=== PATIENT | female | born 1995 | race Caucasian/White ===

== ENCOUNTER 2016-11-17 22:03 | Emergency (ER) | payer MEDICAID ==
[~2016-11-17] VITALS: Ht 167.6 cm; Wt 104.8 kg
[~2016-11-17 22:03] MED LIST: HYDR-3989 PO; NO ROUTINE MEDS; PRED20TA PO
[2016-11-17 22:20] VITALS: Ht 167.6 cm; Wt 104.8 kg
--- NOTE | 2016-11-17 22:43 | ERPDOC ---
Departure Disposition Decision Date: Nov 18, 2016 Disposition Decision Time: 00:10 (KEENAN SMITH APRN) Disposition: 01 DISCHARGED HOME, SELF-CARE Impression Impression (KEENAN SMITH APRN) Impression: Primary Impression: Abdominal pain during in second trimester Severity: Moderate (KEENAN SMITH APRN) Condition: Stable Seen By: Mid-level only (KEENAN SMITH APRN) Referrals: ORLANDO MYERS MD Patient Instructions: Abdominal Pain in (ED) Problems/Meds/Labs Reviewed?: Yes Medications reviewed and manag: Yes (KEENAN SMITH APRN) Additional Instructions: Your labs were normal today. You may take OTC tylenol for pain. Call Dr. Myers's office tomorrow for appointment for re-evaluation. Wear your "belly band" to help support your abdomen. Follow treatment plan. Departure Forms: Return to Work/School Permit Return to Work/School Date: Nov 20, 2016 Follow up care ordered?: Yes Mental Status: Alert, Oriented (KEENAN SMITH APRN) HPI - Abdominal Pain General Stated Complaint: ABD PAIN- 19 WKS Time Seen by Provider: 22:42 Source: patient (KEENAN SMITH APRN) Time Seen by Provider: 22:42 (KACIE MORSE MD) HPI - Abdominal Pain Initial Comments 21-year-old female presents to ER with complaint of medial abdominal pain distal of umbilicus to pubis. States pain started last night and has been constant. Patient is 18 weeks , 1 para 0. EDC 8-20-17. Patient sees Dr. Myers. last visit was on the of this month. Had ultrasound the month previously with known IUP. Patient reports that pain started during the night. Pain is worse with defecation and urination. Patient denies any vaginal bleeding, back pain or dysuria. Pain is improved when lying on her side. Last BM at 1200 today. Patient has not taken anything for pain. Patient says she has mild nausea which is what she has had with (no increased nausea or vomiting). Patient does admit she has been working more lately and has been on her feet 12 hours daily at work. Pain Scale: Now: 5/10 Quality: burning 1 - Reports pain Associated Symptoms: DENIES: back pain, chest pain, diaphoresis, fatigue, fever /chills, headache, heartburn, rash, shortness of breath, swelling/mass in abdomen, syncope, weakness (KEENAN SMITH MATERIALS BRANCH CHIEF) Allergies: Coded Allergies: No Known Drug Allergies (Unverified Allergy, Unknown, 05/09/08) Past History Past Medical History Metabolic: DENIES: diabetes, hypertension Cardiac: DENIES: angina Respiratory: DENIES: asthma GI: GERD, gallbladder disease Female: DENIES: renal insufficiency Neurological: DENIES: seizures Musculoskeletal: DENIES: rheumatoid arthritis Psychological: DENIES: depression (KEENAN SMITH MATERIALS BRANCH CHIEF) Surgical History General: EGD, gallbladder, other (left breast biopsy with cyst removal) Joint: other (ankle) (KEENAN SMITH MATERIALS BRANCH CHIEF) Family History Family PMH: FOUND: other (noncontributory) (KEENAN SMITH MATERIALS BRANCH CHIEF) Vaccines Hx Influenza Vaccination: Yes ([id number]) Hx Pneumococcal Vaccination: No (KEENAN SMITH APRN) Social History Substance Use Type: does not use Alcohol Intake: occasionally (KEENAN SMITH MATERIALS BRANCH CHIEF) Review of Systems Constitutional Constitutional: DENIES: chills, dizziness, fever, weakness (MARIA ESTHER SMITHS A MATERIALS BRANCH CHIEF) Eyes General: DENIES: erythema, exudate Lids/Accessories: DENIES: erythema, swelling (KEENAN SMITH MATERIALS BRANCH CHIEF) ENMT Ears: DENIES: pain Hearing: DENIES: hearing loss Sinuses: DENIES: congestion, rhinorrhea Mouth/Throat: DENIES: sore throat (MARIA ESTHER SMITHS A MATERIALS BRANCH CHIEF) Cardiovascular Cardiac: DENIES: chest pain, murmur (MARIA ESTHER SMITHS A MATERIALS BRANCH CHIEF) Pulmonary Respiratory: DENIES: cough, dyspnea (MARIA ESTHER SMITHS A MATERIALS BRANCH CHIEF) GI Upper Abdomen: nausea, DENIES: pain, vomiting Lower Abdomen: constipation, pain, see HPI, DENIES: blood in stool, diarrhea ( MARIA ESTHER SMITHS A MATERIALS BRANCH CHIEF) General: DENIES: burning, dysuria, frequency, pain, urgency (MARIA ESTHER SMITHS A MATERIALS BRANCH CHIEF) Musculoskeletal General: DENIES: joint pain, pain, tenderness (MARIA ESTHER SMITHS A MATERIALS BRANCH CHIEF) Integumentary Skin: DENIES: color change, itching, rash (MARIA ESTHER SMITHS A MATERIALS BRANCH CHIEF) Neurological General: DENIES: ataxia, change in strength, numbness, paralysis/paresis, weakness (MARIA ESTHER SMITHS A MATERIALS BRANCH CHIEF) Psychiatric Psychiatric: DENIES: anxiety, depression, nervousness (MARIA ESTHER SMITHS A MATERIALS BRANCH CHIEF) Physical Exam General General Nourishment: well nourished, well developed, adult General Body Habitus: well groomed (MARIA ESTHER SMITHS Tawny MATERIALS BRANCH CHIEF) Vitals and Pain First Documented Vital Signs Date Time Temp Pulse Resp B/P Pulse Ox O2 Delivery O2 Flow Rate FiO2 11/17/16 22:20 98.4 101 18 139/84 98 Room Air (KACIE MORSE MD) Vitals and Pain Weight: Kilograms: Height (feet): 5 Height (inches): 6.00 Triage Pain Scale: (MARIA ESTHER SMITHS A MATERIALS BRANCH CHIEF) Eyes (brief) Eyes Brief: found: EOMI (MARIA ESTHER SMITHS A MATERIALS BRANCH CHIEF) ENMT (brief) ENMT Brief: NOT FOUND: nasal exudate, nasal swelling (MARIA ESTHER SMITHS A MATERIALS BRANCH CHIEF) Neck (brief) Neck: FOUND: trachea midline (MARIA ESTHER SMITHS A MATERIALS BRANCH CHIEF) Respiratory (brief) Respiratory: FOUND: clear all shakih, equal bilaterally, symmetrical (MARIA ESTHER SMITHS A MATERIALS BRANCH CHIEF) Cardiovascular (brief) Cardiac: FOUND: regular rate, regular rhythm (MARIA ESTHER SMITHS A MATERIALS BRANCH CHIEF) Abdomen Inspection: FOUND: other (fundal height 2 finger breaths below umbilicus) Palpation: FOUND: soft, NOT FOUND: hepatomegaly, involuntary guarding, rebound , splenomegaly, tender, voluntary guarding Auscultation: FOUND: normoactive (x4) (MARIA ESTHER SMITHS A MATERIALS BRANCH CHIEF) Musculoskeletal (brief) Musculoskeletal Brief: NOT FOUND: deformity, loss of motion (MARIA ESTHER SMITHS A MATERIALS BRANCH CHIEF) Integumentary (brief) Integumentary Brief: FOUND: dry, pink, warm (MARIA ESTHER SMITHS A MATERIALS BRANCH CHIEF) Neurologic (brief) Neurological Brief: FOUND: motor-no gross deficits, sensory-no gross deficits ( LUISKEENAN A MATERIALS BRANCH CHIEF) Psychiatric (brief) Psychiatric Brief: FOUND: alert, normal affect, oriented (MARIA ESTHER SMITHS A MATERIALS BRANCH CHIEF ) Differential Diagnoses Considering: Threatened AB (spont), Appendicitis, Constipation/Obstipation, UTI , Other (Hernia) (MARIA ESTHER SMITHS A MATERIALS BRANCH CHIEF) Progress Results/Orders Orders Procedure Category Date Status Time Nothing By Mouth (Ed EDM 3/20/17 Transmitted Only) 22:49 Cbc W/Auto LAB 11/17/16 Complete Diff-Reflex Manual 22:49 Cmp - Comprehensive LAB 11/17/16 Complete Metabolic 22:49 Ua, Dip Wreflex LAB 11/17/16 Complete Microsc & Edge Polisher 22:49 (KACIE MORSE MD) Lab Results Laboratory Tests Test 11/17/16 23:03 11/17/16 23:17 Urine Collection Type Cleancatch-midstream Urine Color Yellow Urine Turbidity Sl cloudy Urine pH 6.5 Urine Specific Dighton 1.020 Urine Protein Negative Urine Glucose (UA) Negative Urine Ketones Negative Urine Blood Trace-intact Urine Nitrite Negative Urine Bilirubin Negative Urine Urobilinogen 0.2EU/DL Urine Leukocyte Esterase Negative Urinalysis Comment Microscopic not ind. White Blood Count 10.9T/MM3 Red Blood Count 3.88M/MM3 Hemoglobin 11.2GM/DL Hematocrit 33.9% Mean Corpuscular Volume 87.4UM3 Mean Corpuscular Hemoglobin 28.9UUG Mean Corpuscular Hemoglobin Concent 33.0GM/DL RDW Standard Deviation 42.5FL Platelet Count 291T/MM3 Mean Platelet Volume 10.0UM3 Immature Granulocyte % (Auto) 0.4% Neutrophils (%) (Auto) 67.7% Lymphocytes (%) (Auto) 23.9% Monocytes (%) (Auto) 6.1% Eosinophils (%) (Auto) 1.7% Basophils (%) (Auto) 0.2% Absolute Immature Granulocyte (auto 0.04T/MM3 Absolute Neutrophils (auto) 7.4T/MM3 Absolute Lymphocytes (auto) 2.6T/MM3 Absolute Monocytes (auto) 0.7T/MM3 Absolute Eosinophils (auto) 0.2T/MM3 Absolute Basophils (auto) 0.0T/MM3 Turbidity < 20 Sodium Level 140MEQ/L Potassium Level 3.6MEQ/L Chloride Level 107MEQ/L Carbon Dioxide Level 24MEQ/L Anion Gap 9MEQ/L Blood Urea Nitrogen 8.0MG/DL Creatinine 0.5MG/DL Glomerular Filtration Rate Calc 157 BUN/Creatinine Ratio 16RATIO Glucose Level 77MG/DL Calculated Osmolality 266MOSM/KG Calcium Level 9.4MG/DL Total Bilirubin 0.30MG/DL Icterus Index < 2 Aspartate Amino Transf (AST/SGOT) 13U/L Alanine Aminotransferase (ALT/SGPT) 25U/L Alkaline Phosphatase 61U/L Total Protein 6.8G/DL Albumin 3.7G/DL Globulin 3.1G/DL Albumin/Globulin Ratio 1.2RATIO Chemistry Specimen Hemolysis < 15 (KACIE MORSE MD) Progress Progress Labs are unremarkable. I discussed conversation I had with Dr. Cade and labs with patient. Patient says that she does have "a belly band" but has not been wearing it. Patient now says she has been passing a lot of gas today and thinks she may be constipated. Patient verbalized understanding of treatment plan, close follow up with Dr. Myers and return precautions. (KEENAN SMITH APRN) Consult/PCP Consult/PCP : Type of discussion: Phone Consult/PCP Discussion Details I discussed patient's HPI, PMH, labs, VS, FHT and exam findings with Dr. Cade. Dr. Cade asked if patient may have umbilical hernia which I told her I did not feel any weakening in abdominal wall. Dr. aCde said she does not feel patient is having any symptoms of miscarriage. She suggest patient wear a band. Follow up with Dr. Christianson in office. She does not feel patient needs ultrasound. Dr. Cade feels patient pain should be managed with tylenol. (KEENAN SMITH APRN) KEENAN SMITH APRN Nov 17, 2016 22:43 KACIE MORSE MD Nov 18, 2016 01:41
--- NOTE | 2016-11-17 23:00 | NUR ---
FHT FHT assessed = 144 bpm
[2016-11-17 23:13] LABS: BLOOD, URINE TRACE-INTACT (NEGATIVE); COLOR,URINE YELLOW (YELLOW); LEUKOCYTE ESTERASE ,URINE NEGATIVE (NEGATIVE); NITRITE,URINE NEGATIVE (NEGATIVE); UROBILINOGEN,URINE 0.2 EU/DL (NORMAL)
--- NOTE | 2016-11-17 23:32 | NUR ---
REPORT RECIEVED REPORT FROM CHARLIE SIMMONS. I WILL RESUME CARE
[2016-11-17 23:39] LABS: ALBUMIN 3.7 G/DL (3.5-5.0); ALBUMIN/GLOBULIN RATIO 1.2 RATIO (1.1-2.2); ALKALINE PHOSPHATASE 61 U/L (38-126); ALT (SGPT) 25 U/L (9-52); ANION GAP 9 MEQ/L (5-15); AST (SGOT) 13 U/L (14-36); BUN/CREATININE RATIO 16 RATIO (6-26); CALCIUM 9.4 MG/DL (8.4-10.2); CHLORIDE 107 MEQ/L (98-107); CO2 - CARBON DIOXIDE 24 MEQ/L (22-30); CREATININE 0.5 MG/DL (0.7-1.2); GLOMERULAR FILTRATION RATE 157; GLUCOSE 77 MG/DL (65-110); POTASSIUM 3.6 MEQ/L (3.6-5); SODIUM 140 MEQ/L (134-144); TOTAL PROTEIN 6.8 G/DL (6.3-8.2)
[2016-11-17 23:41] LABS: BASOPHILS % (AUTO) 0.2 % (0-2); EOSINOPHILS # (AUTO) 0.2 T/MM3 (0-0.5); EOSINOPHILS % (AUTO) 1.7 % (0-4); HCT - HEMATOCRIT 33.9 % (36-46); HGB - HEMOGLOBIN 11.2 GM/DL (12-16); IMMATURE GRANULOCYTE # (AUTO) 0.04 T/MM3 (0.00-0.03); IMMATURE GRANULOCYTE % (AUTO) 0.4 % (0.0-0.5); LYMPHOCYTES # (AUTO) 2.6 T/MM3 (1-4.8); LYMPHOCYTES % (AUTO) 23.9 % (23-45); MEAN CORPUSCULAR HGB 28.9 UUG (26-34); MEAN CORPUSCULAR VOLUME 87.4 UM3 (80-100); MONOCYTES # (AUTO) 0.7 T/MM3 (0-0.8); MONOCYTES % (AUTO) 6.1 % (0-9.0); NEUTROPHILS #(AUTO)-ABSOLUTE 7.4 T/MM3 (1.8-7.7); NEUTROPHILS % (AUTO) 67.7 % (33-66); RED BLOOD COUNT 3.88 M/MM3 (4.00-5.20); WBC - WHITE BLOOD COUNT 10.9 T/MM3 (4.5-11.0)
[2016-11-18 00:28] VITALS: BP 135/83; PULSE 98; RESP 18; TEMP 98; O2SAT 98
--- NOTE | 2016-11-18 00:28 | NUR ---
DEPART PT IS GIVEN DISMISSAL INSTRUCTIONS WITH VERBAL UNDERSTANDING. PT LEAVES AMBULATORY WITH FAMILY TO ED REGISTRATION DESK
== END 2016-11-18 00:28 | disposition home or self-care (01) ==
LOC: ED 22:03
DX: O26.892 Other specified pregnancy related conditions, second trimester (principal); R10.30 Lower abdominal pain, unspecified; Z3A.18 18 weeks gestation of pregnancy
CPT/HCPCS: 36415; 80053; 81003; 85025

== ENCOUNTER 2016-12-17 11:26 | Outpatient (CLI) | payer MEDICAID ==
[~2016-12-17 11:26] MED LIST changes: -HYDR-3989 PO; -PRED20TA PO
[2016-12-17] MEDS ORDERED: ACETAMINOPHEN 500 MG TABLET PO PRN (12:15)
--- NOTE | 2016-12-17 12:15 | PNPDOC ---
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 Pain has been present since 2 nights ago. Good FM. No LOF or VB. Her support belt hasn't helped. No dysuria. She does have constipation, but she had a BM last PM. Objective General: Alert and Oriented Resting on the bed. Abdomen: Non-tender Fundus soft. Tender over right round ligament down to right anterior-lateral thigh. No tenderness over the saphenous vein. No calf tenderness or edema. Objective Comments FHT Doppler normal. (1) 22 weeks gestation of (2) with abdominal pain of right lower quadrant, antepartum Assessment & Plan: Exam c/w round ligament pain. Check UA. Try Tylenol & heating pad. Use support belt more consistently. WILFREDO LOPEZ MD Dec 17, 2016 12:13
--- NOTE | 2016-12-17 12:35 | NUR ---
OB Triage EDC 04-19-17 @c/o R low abdominal and upper R thigh pain. Pain started 2-4 days ago but is worse now and she is supposed to go to work at 3 PM today. Tylenol and warm rice bag given. Evaluated by Dr. Roberson. Note for work today given. Dismissed ambulatory.
[2016-12-17] MEDS ORDERED: PREN1TAB77 PO (16:37)
== END 2016-12-17 12:35 | disposition home or self-care (01) ==
LOC: OBOBS 11:26 → MC 11:26 → OBOBS 12:35
PROVIDERS: ATTEND Obstetrics & Gynecology
DX: O26.892 Other specified pregnancy related conditions, second trimester (principal); R10.31 Right lower quadrant pain; M79.651 Pain in right thigh; Z3A.22 22 weeks gestation of pregnancy
CPT/HCPCS: 99211

== ENCOUNTER 2017-04-21 16:00 | Inpatient (IN) ==
[2017-04-21] MEDS ORDERED: SALINE FLUSH 10ml SYRINGE IVF PRN (17:02)
[2017-04-21] MEDS ORDERED: DINOPROSTONE 10 MG VAGINAL INSERT VG ONE (17:02)
[2017-04-21] MEDS ORDERED: TERBUTALINE 1 MG/ML VIAL SQ PRN (17:02)
[2017-04-21] MEDS ORDERED: MAG-AL + SIM ORAL LIQUID 30ml PO PRN (17:04)
[2017-04-21] MEDS ORDERED: CALCIUM CARBONATE Chewable 500mg TABLET PO PRN (17:04)
[2017-04-21] MEDS ORDERED: LIDOCAINE 1% (10mg/ml) 2mL INJ PF SDV ID PRN (17:04)
[2017-04-21] MEDS ORDERED: METHYLERGONOVINE 0.2 MG/ML INJECTION IM PRN (17:04)
[2017-04-21] MEDS ORDERED: ACETAMINOPHEN 500 MG TABLET PO PRN (17:04)
[2017-04-21] MEDS ORDERED: CARBOPROST 250 MCG/ML INJECTION IM PRN (17:04)
[2017-04-21 21:41] VITALS: BMI 41.5
[2017-04-22] MEDS ORDERED: ACETAMINOPHEN 500 MG TABLET PO PRN ×2 (03:26→20:07)
[2017-04-22] MEDS ORDERED: CARBOPROST 250 MCG/ML INJECTION IM PRN (03:26)
[2017-04-22] MEDS ORDERED: METHYLERGONOVINE 0.2 MG/ML INJECTION IM PRN (03:26)
[2017-04-22] MEDS ORDERED: MAG-AL + SIM ORAL LIQUID 30ml PO PRN (03:26)
[2017-04-22] MEDS ORDERED: CALCIUM CARBONATE Chewable 500mg TABLET PO PRN ×2 (03:26→20:07)
[2017-04-22] MEDS: D5LR 1,000 ML IV PRN ×2 (06:00→14:52)
[2017-04-22] MEDS ORDERED: OXYTOCIN DRIP 30 UNIT/500 ML ML IV PRN (06:00)
[2017-04-22] MEDS ORDERED: ROPIVACAINE 1% 10MG/ML INJ 200 MG, SUFentanil 50 MCG in NS 100 ML EPI PRN (08:40)
[2017-04-22] MEDS ORDERED: ONDANSETRON 4 MG/2 ML INJECTION IVP PRN (08:40)
[2017-04-22] MEDS ORDERED: NALOXONE 0.4 MG/ML INJECTION IVP PRN (08:40)
[2017-04-22] MEDS ORDERED: DiphenhydrAMINE 50 MG/ML INJECTION IVP PRN (08:40)
--- NOTE | 2017-04-22 08:40 | Anesthesia Preoperative Report ---
Anesthesia Epidural/Spinal Rec - Date and Time Date: 04/22/17 Procedure: Labor Epidural Plan: Epidural - Vital Signs Vital Signs: Temperature 98.0 F 04/22/17 02:28 Pulse Rate 82 04/22/17 02:28 Respiratory Rate 20 04/22/17 02:28 Blood Pressure 121/66 04/22/17 02:28 Pulse Oximetry 97 04/21/17 17:00 Oxygen Delivery Method Room Air /Para: P:0 - Medictaions & Allergies Inpatient Medications: Current Medications Acetaminophen (Tylenol) 500 - 1,000 mg PO Q4H PRN PRN Reason: Pain Last Admin: 04/21/17 21:13 Dose: 1,000 mg Al Hydroxide/Mg Hydroxide (Maalox Plus) 30 ml PO Q3H PRN PRN Reason: Indigestion Calcium Carbonate (Tums) 500 - 1,000 mg PO Q2H PRN PRN Reason: Indigestion Last Admin: 04/21/17 19:38 Dose: 1,000 mg Carboprost Tromethamine (Hemabate) 250 mcg IM O PRN PRN Reason: .Downtime Diphenhydramine HCl (Benadryl) 50 mg PO HS PRN PRN Reason: Sleep Last Admin: 04/21/17 21:14 Dose: 50 mg Dextrose/Lactated Ringer's (Dextrose 5%-Lactated Ringers) 1,000 mls @ 125 mls/ hr IV .Q8H PRN PRN Reason: Labor Last Admin: 04/22/17 06:00 Dose: 125 mls/hr Oxytocin (Pitocin Drip) 30 unit in 500 mls @ 2 mls/hr IV .Q24H PRN; Protocol PRN Reason: Induction/Augmentation Last Admin: 04/22/17 06:00 Dose: 2 mls/hr Lactated Ringer's (Lactated Ringers) 1,000 mls @ 0 mls/hr IV .Q0M ALECIA PRN Reason: Per Protocol Lidocaine HCl (Xylocaine-Mpf 1% Vial) 0.2 mg ID O PRN PRN Reason: IV Start Methylergonovine Maleate (Methergine) 0.2 mg IM O PRN Misoprostol (Cytotec) 800 mcg HI ONCE PRN Sodium Chloride (Iv Flush) 10 - 80 ml IVF PRN PRN PRN Reason: Flushing Terbutaline Sulfate (Brethine) 0.25 mg SQ PRN PRN Allergies/Adverse Reactions: Allergies Allergy/AdvReac Type Severity Reaction Status Date / Time No Known Drug Allergies Allergy Unknown Verified 03/07/17 04:58 - Home Medications Home Medications: Home Medications Medication Instructions Recorded Confirmed Type Vit No.130/Iron/Folic 1 tab PO DAILY #0 tab 12/17/16 04/21/17 History [ Tablet] ferrous sulfate ER 325 mg (65 mg 325 mg PO .QD cap 02/02/17 04/21/17 History iron) capsule,extended release - Medical History Respiratory: Reports: Other (former smoker) Cardiovascular: DENIES: Abnormal EKG, Angina, Arrhythmia, Congestive Heart Failure, Coronary Artery Disease, Heart Murmur, Hypertension, Hypotension, High Cholesterol, Myocardial Infarction, Rheumatic Fever, Valvular Heart Disease, Other Gastrointestional: Reports: Gastroesophageal Reflux Disease (gastric polyps), Morbid Obesity Neuro/Musculoskeletal: Reports: Back Problems (bilat sciatica. hx of fx tailbone ) Renal/Endocrine: DENIES: Diabetes Mellitus Type 1, Diabetes Mellitus Type 2, Renal Failure, Dialysis, Thyroid Disease, Weight Loss, Weight Gain, Other Other History: Reports: Now - Surgical History GI Surgery/Treatments: Reports: Cholecystectomy, EGD Anesthesia Reactions: None Hx Family Anesthesia Reaction: No History of Motion Sickness: No - Social History Smoking Status: Former smoker (quit while .) packs per day: 0.2 Pack-years: 5 Second Hand Exposure: Yes Substance Use Type: does not use Alcohol Intake Frequency: does not drink - Pertinent Findings Lab Data: CBC and BMP 04/21/17 17:25 EKG Rhythm: Normal Sinus Rhythm - Physical Exam Respiratory Exam: lungs clear, bilateral breath sounds equal Cardiovascular Exam: regular rate and rhythm, no murmur - Airway Assessment Mallampati Score: II TMD: 3 Fingerbreadths Neck Extension: good Overall Assessment: may be difficult intubation - ASA ASA Score: 2 - Discussion Discussion: Discussed risks/options/alternatives of anesthesia and questions answered. Patient consents. Nursing pain assessment noted. Anesthesia Discussion: family member Attestation Statement: Prior to the delivery of any anesthetic medication, I examined the patient, developed the plan, obtained the patient's consent and discussed the risk and benefits of the procedure with the patient/guardian.
[2017-04-22] MEDS: LR 1,000 ML IV SCH ×3 (09:30→17:42)
[2017-04-22] MEDS ORDERED: FAMOTIDINE PB 20 MG/50 ML BAG IV ONE (17:26)
[2017-04-22] MEDS ORDERED: CEFAZOLIN PREMIX (MC ONLY) 2 GM/50 ML BAG IV ONE (17:26)
[2017-04-22] MEDS ORDERED: CITRIC ACID/SODIUM CITRATE 30ml PO ONE (17:26)
[2017-04-22] MEDS ORDERED: LIDOCAINE 2%/EPI 1:200,000 20ml SDV PF ONE (17:36)
[2017-04-22] MEDS ORDERED: FentaNYL 100 MCG/2 ML INJECTION ONE (17:37)
[2017-04-22] MEDS ORDERED: AZITHROMYCIN IV 500 MG in NS 250ml 250 ML IV SCH (18:00)
[2017-04-22] MEDS ORDERED: ONDANSETRON 4 MG/2 ML INJECTION ONE (18:19)
[2017-04-22] MEDS ORDERED: MORPHINE SULFATE PF 5mg/10ml INJ (Duramorph) ONE (18:31)
[2017-04-22] MEDS ORDERED: METOCLOPRAMIDE 10mg/2ml INJECTION ONE (18:38)
[2017-04-22] MEDS ORDERED: LIDOCAINE 1.5% W/EPI 1:200,000 30ml SDV PF ONE (18:46)
[2017-04-22] MEDS ORDERED: NALOXONE 2 MG/2 ML INJECTION PFS IVP PRN (19:12)
[2017-04-22] MEDS ORDERED: HYDROCORTISONE 2.5% CREAM 30gm RECTALLY PRN (20:07)
[2017-04-22] MEDS ORDERED: DiphenhydrAMINE 25 MG CAPSULE PO PRN (20:07)
[2017-04-22] MEDS ORDERED: OXYTOCIN DRIP 30 UNIT/500 ML ML IV SCH (20:07)
[2017-04-22] MEDS ORDERED: SIMETHICONE 80 MG CHEWABLE TABLET PO PRN (20:07)
[2017-04-22] MEDS ORDERED: SALINE FLUSH 10ml SYRINGE IVF PRN (20:07)
[2017-04-22] MEDS: IBUPROFEN 800 MG TABLET PO PRN (20:09)
[2017-04-22] MEDS: HYDROCODONE/APAP 5mg/325mg TABLET PO PRN (20:09)
[2017-04-22] MEDS: D5LR 1,000 ML IV SCH (21:50)
[2017-04-23] MEDS: HYDROCODONE/APAP 5mg/325mg TABLET PO PRN ×6 (00:09→21:07)
[2017-04-23] MEDS: SIMETHICONE 80 MG CHEWABLE TABLET PO SCH ×5 (00:11→23:04)
[2017-04-23] MEDS: D5LR 1,000 ML IV SCH ×2 (06:10→17:59)
--- NOTE | 2017-04-23 07:44 | OB/GYN Progress Note ---
OB-Progress Note Free Text - Date Date: 04/23/17 - Progress Note Progress Note: vss af pt very tired - I encouraged napping hgb drop noted disc increase activity and plan for today q&a-krb
--- NOTE | 2017-04-23 08:42 | Operative Note ---
DATE: 04/22/2017 PREOPERATIVE DIAGNOSIS 1. 22-year-old female, G1, P0, at 40.3 weeks gestational age. 2. Induction of labor for postdates. 3. Cervidil cervical ripening. 4. AROM. 5. Intrauterine pressure monitor. POSTOPERATIVE DIAGNOSIS 1. Failed induction with arrest of dilation at 1.5cm and failure to progress. 2. Occiput-posterior presentation. 3. Female infant, 3610 g (8 pounds), 8/9 Agars (Ysabel Wilkerson). PROCEDURE: Primary low transverse section. EBL: 1000 ml. SURGEON: Sancho Jay MD HEALTH INFORMATION MANAGER: Shirin Cade MD COMPLICATIONS: None. ANESTHESIA: Epidural dosing by Ricahrd Mayers CRNA. DESCRIPTION OF PROCEDURE After adequate epidural anesthesia, the patient was prepped and draped in the left lateral decubitus position. A Pfannenstiel skin incision was made with a sharp knife and carried down the fascia, which was incised transversely with the Khoury scissors. The rectus fascia was bluntly and sharply dissected off the rectus muscle. The rectus muscle was divided, and the peritoneum was isolated, elevated, entered with the Metzenbaum scissors and extended cephalad and caudad. The bladder blade was then inserted. The lower vesicouterine fold of the peritoneum was isolated and incised transversely. The bladder was bluntly dissected off the lower uterine segment. The bladder blade was reinserted. Then using a sharp knife, a transverse incision was made in the lower uterine segment. This was extended with my fingers. Infant was delivered from the vertex position without difficulty. was bulb suctioned after delivery of head and then again after delivery of body. Cord was doubly clamped and cut and the was received by Dr. Danelle Julio of pediatrics. Placenta was removed manually and was intact. Uterus was externalized and cleansed with moist lap sponges. The placenta was expressed manually and was intact. The uterus was then allowed to fall upon the external abdominal wall. The endometrial cavity was cleansed using moist lap sponges. The uterus was closed using 0-Monocryl in a running locking fashion. Hemostasis was confirmed. The bladder flap was then reapproximated with the visceral peritoneum using 3-0 Vicryl in a running nonlocking fashion. The posterior cul-de-sac was cleansed of old blood clots and the tubes and ovaries were examined and found to be normal in size, shape and appearance. After hemostasis was again confirmed, the uterus was then carefully returned to the abdominal cavity. The abdomen was then closed in layers. The peritoneum was closed using 2-0 Vicryl in running nonlocking fashion. The fascia was closed using 0-Vicryl in a running nonlocking fashion bilaterally from the lateral aspects medially. Hemostasis was achieved with the subcutaneous tissue and then the skin was closed using wide jose in a serial fashion. The patient tolerated the procedure well and went to the recovery room in stable condition. Pad, sponge and needle counts were correct and urine postop was clear and free flowing. MTDD
--- NOTE | 2017-04-23 09:20 | Anesthesia Postoperative Note ---
- Date and Time Date: 04/23/17 Time: 09:19 - Status Patient Participated in Evaluation: Patient Participated in Person Vital Signs: Temperature 98.7 F 04/23/17 04:00 Pulse Rate 111 H 04/23/17 04:00 Respiratory Rate 18 04/23/17 04:00 Blood Pressure 130/67 04/23/17 04:00 Pulse Oximetry 99 04/23/17 04:00 Oxygen Delivery Method Room Air Respiratory Function: Airway Patent Cardiovascular Function: Regular Pulse EKG Rhythm: Normal Sinus Rhythm Mental Status: Alert and Oriented Pain Intensity: 3 Hydration: Taking PO Fluids Complications During Recover: None Apparent - Follow-Up Instructions Instructions: Per Surgeon
[2017-04-23] MEDS: IBUPROFEN 800 MG TABLET PO PRN ×2 (11:38→23:04)
[2017-04-23] MEDS: DOCUSATE CALCIUM 240 MG CAPSULE PO SCH (11:39)
[2017-04-24] MEDS: HYDROCODONE/APAP 5mg/325mg TABLET PO PRN ×5 (04:00→22:33)
[2017-04-24] MEDS: D5LR 1,000 ML IV SCH ×2 (05:45→14:20)
[2017-04-24] MEDS: IBUPROFEN 800 MG TABLET PO PRN ×2 (07:58→16:55)
[2017-04-24] MEDS: DOCUSATE CALCIUM 240 MG CAPSULE PO SCH (08:00)
[2017-04-24] MEDS: SIMETHICONE 80 MG CHEWABLE TABLET PO SCH ×5 (08:01→22:33)
--- NOTE | 2017-04-24 19:00 | OB/GYN Progress Note ---
OB-Progress Note Free Text - Date Date: 04/24/17 - Progress Note Progress Note: POD2 doing fine worried about constipation so started MoM. Incision fine per RN Began discussing dc instructions anticipate dc tomorrow. q&a-krb
[2017-04-25] MEDS: D5LR 1,000 ML IV SCH (00:56)
[2017-04-25] MEDS: IBUPROFEN 800 MG TABLET PO PRN ×2 (04:07→13:33)
[2017-04-25] MEDS: HYDROCODONE/APAP 5mg/325mg TABLET PO PRN ×3 (04:10→13:34)
[2017-04-25 04:36] VITALS: BP 141/84; PULSE 106; RESP 18; TEMP 98; O2SAT 98
[2017-04-25] MEDS: DOCUSATE CALCIUM 240 MG CAPSULE PO SCH (09:16)
--- NOTE | 2017-04-25 11:53 | OB/GYN Progress Note ---
OB-PP Progress Note - General PPD3 Maternal Group B Strep: Negative Maternal blood type: A+ Maternal Rubella Status: Immune - Subjective Date: 04/25/17 Lochia: Minimal Pain: contolled Voiding: voiding - Objective Vital Signs: Last Vital Signs Temp 98.0 F 04/25/17 04:22 Pulse 106 H 04/25/17 04:22 Resp 18 04/25/17 04:22 BP 141/84 H 04/25/17 04:22 Pulse Ox 98 04/25/17 04:22 Urine Output: good General: alert and oriented Abdomen: fundus firm, non-tender Incision: normal, intact Extremities: non-tender Edema Degree: 2+ - Assessment Assessment: Primary C/S - Plan Plan: routine care, discharge home, continue PNV
--- NOTE | 2017-04-25 11:56 | Discharge Instructions ---
Discharge Plan - Med Rec/Dispo Prescriptions: New Hydrocodone/APAP 5/325 [Mt Bal[place] 5/325] 1 - 2 tab PO Q4H PRN #40 tab PRN Reason: Pain Ibuprofen [Motrin] 800 mg PO Q8H PRN #30 tab PRN Reason: Pain Continue Vit No.130/Iron/Folic [ Tablet] 1 tab PO DAILY #0 tab Discharge Instructions/Outpatient Orders: Final Provider Discharge Instructions Time Frame: 04/25/17, Location: Determined By Patient - Disposition 01 Discharged Home, Self-Care
[2017-04-25] MEDS: SIMETHICONE 80 MG CHEWABLE TABLET PO SCH ×2 (12:39→14:41)
== END 2017-04-25 13:45 | disposition home or self-care (01) | DRG 766 ==
LOC: MC 16:45
PROVIDERS: ADMIT Obstetrics & Gynecology; ATTEND Obstetrics & Gynecology